=== PATIENT | female | born 1960 | race Caucasian/White ===

== ENCOUNTER 2021-01-23 09:49 | Emergency (ER) | payer OTHER ==
[~2021-01-23 09:49] MED LIST: HYDROCODON-ACE1 EAC4 PO
[2021-01-23 12:00] LABS: BILIRUBIN NEGATIVE (NEGATIVE); BLOOD TRACE-INTACT Ery/uL (NEGATIVE); CLARITY CLEAR (CLEAR); COLOR YELLOW (YELLOW); GLUCOSE (U) NORMAL (NORMAL); LEUKOCYTES 1+ Leu/uL (NEGATIVE); NITRITE NEGATIVE (NEGATIVE); PROTEIN NEGATIVE (NEGATIVE); SPECIFIC GRAVITY >=1.030 (1.001-1.030); UROBILINOGEN 0.2 mg/dL (0.2-1.0); pH 5.5 (5.0-9.0)
[2021-01-23 12:31] LABS: BASOPHIL 0.5 % (0-2); EOSINOPHIL 2.1 % (0-5); HCT 43.2 % (37.0-47.0); LYMPHOCYTE 24.7 % (15-48); MCH 27.9 pg (25.0-31.0); MCHC 32.4 g/dL (32.0-36.0); MCV 86.1 fL (78.0-100.0); MONOCYTE 11.9 % (0-12); MPV 10.3 fL (6.0-9.5); NEUTROPHIL 60.2 % (41-80); NRBC 0; PLT 232 K/uL (150-400); RBC 5.02 M/uL (4.20-5.40); RDW 14.7 % (11.5-14.0); WBC 6.6 K/uL (4.0-10.5)
[2021-01-23 12:32] LABS: BACTERIA TRACE; SQUAMOUS EPITHELIAL CELLS >50
[2021-01-23 12:48] LABS: ALBUMIN 3.6 g/dL (3.4-5.0); BILIRUBIN - TOTAL 0.2 mg/dL (0.2-1.0); BUN/CREAT RATIO (CALC) 26.5 RATIO; C-REACTIVE PROTEIN 1.1 mg/dL (<=0.90); CREATININE 0.68 mg/dL (0.51-0.95); POTASSIUM 3.9 mmol/L (3.5-5.1); TOTAL PROTEIN 7.6 g/dL (6.4-8.2)
[2021-01-23] MEDS ORDERED: NORCO 5-325 TA1 EACH PO (14:24)
[2021-01-23] MEDS ORDERED: ZANAFLEX2 MG PO (14:24)
== END 2021-01-23 15:06 | disposition home or self-care (01) ==
LOC: FER 09:49
PROVIDERS: Emergency Medicine
DX: M47.816 Spondylosis without myelopathy or radiculopathy, lumbar region (principal); Z88.6 Allergy status to analgesic agent
CPT/HCPCS: 36415; 72131; 80053; 81001; 84145; 85025; 86140; J1170; J2405; J7030